=== PATIENT | female | born 1995 | race Caucasian/White ===

== ENCOUNTER 2017-01-20 19:29 | Emergency (ER) | payer SELFPAY ==
--- NOTE | 2017-02-22 16:19 | ER ---
ADMIT: 01/20/2017 RM/LOC: ER [facility] MR#: [id number] [place], [place] [id number] ROSA MARIA GROSSMAN [address] [place], [place] [id number] Emergency Room Report SEX: F AGE: 21 : 1995 DATE: 01/20/2017 ADDENDUM: This patient comes to the ER because she is having cough and fever and sinus pain for the last 10 days. She was recently traveling out of the country. She also has had fevers and chills that she states have increased today. She is coming from [place]. On physical exam, her lungs are clear. She does have a lot of swelling in her turbinates and purulent drainage. DIAGNOSIS: Sinusitis. I wrote a prescription for Amoxil 875. We will have her push fluids and follow up with her primary as needed. Please see my T- sheet. PARKER Pisano / Korey Dietrich MD / modl JOB #: [id number] CC: Korey Dietrich MD, Attending Physician Smith Ramos MD, Family Physician
== END 2017-01-20 20:15 | disposition home or self-care (01) ==
LOC: ER 19:29
DX: J32.9 Chronic sinusitis, unspecified (principal)